=== PATIENT | male | born 1995 | race Two or more races ===

== ENCOUNTER 2016-11-11 03:09 | Emergency (ER) | payer SELFPAY ==
[~2016-11-11] VITALS: Ht 175.3 cm; Wt 70.3 kg
[~2016-11-11 03:09] MED LIST: NKM; PEPCID40 MG PO; ZOFRAN ODT4 MG ORAL; ZOFRAN8 MG ORAL
[2016-11-11] MEDS ORDERED: NKM (03:15)
[2016-11-11 03:16] VITALS: BP 147/93
[2016-11-11] MEDS ORDERED: ATIVAN0.5 MG ORAL (03:47)
--- NOTE | 2016-11-11 03:59 | Emergency Room Report ---
History of Present Illness General Chief Complaint: Chest Pain Source: Patient Present Illness HPI 21YOM Walk-in with 9 days of intermittent sharp chest pain substernal. No assoc nausea/vomiting, SOB, diaphoresis, fever/chills cough Denies ETOH, smoking, drug use No known medical problems Went to [facility] ER 8 days ago with similar. Had negative CXR, ECG and troponin per patient. Pain occurs when he is stressed or sees/thinks about something stressful Currently asymptomatic Had episode tonight when he was watching a movie and the character on the movie had a heart attack Pain better when he rubs his chest Allergies: Coded Allergies: No Known Allergies (Unverified , 04/16/13) Patient History Past Medical History: none Past Surgical History: none Pertinent Family History: none Social History: Denies: alcohol use, drug use, smoking Immunizations: UTD Reviewed Nursing Documentation: PMH: Agreed, PSxH: Agreed Nursing Documentation-PMH Past Medical History: No Stated History Review of Systems All Other Systems: negative except mentioned in HPI Physical Exam Vital Signs Date Time Temp Pulse Resp B/P Pulse Ox O2 Delivery O2 Flow Rate FiO2 11/11/16 03:11 97.5 87 16 147/93 99 Room Air Sp02 EP Interpretation: reviewed, normal General Appearance: normal inspection, well appearing, no apparent distress, alert Head: atraumatic Eyes: bilateral eye EOMI, bilateral eye PERRL ENT: normal ENT inspection, hearing grossly normal, normal voice Neck: normal inspection, full range of motion, supple, no bony tend Respiratory: normal inspection, lungs clear, normal breath sounds, no respiratory distress, no retraction, no wheezing Cardiovascular #1: regular rate, rhythm, no edema Gastrointestinal: normal inspection, normal bowel sounds, non tender, soft, no guarding, no hernia Genitourinary: no CVA tenderness Neurologic: normal inspection, alert, oriented x3, responsive, 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 Afebrile Already had negative workup at [facility] ECG here is NSR, no ischemia No ETOH or drug use history Pain occurs with stress ?panic attack, stress induced Unlikely PE, ACS given duration, well appearance, intermittent resolution of symptoms Rx Ativan short-course PMD followup Last Vital Signs Date Time Temp Pulse Resp B/P Pulse Ox O2 Delivery O2 Flow Rate FiO2 11/11/16 03:11 97.5 87 16 147/93 99 Room Air Status: improved Disposition: HOME, SELF-CARE Condition: Improved Scripts Lorazepam* (ATIVAN*) 0.5 Mg Tablet 0.5 MG ORAL DAILY for panic attack for 7 Days, #7 TAB Prov: MIMI GRAMAJO M.D. 11/11/16 Referrals: NOT CHOSEN IPA/,REFERRING (PCP) Patient Instructions: Panic Attacks, [id number] Additional Instructions: - Take ativan next time you have chest pain - Do not take before driving/working, operating machinery MIMI GRAMAJO M.D. Nov 11, 2016 03:59
[2016-11-11 04:02] VITALS: BP 147/93
== END 2016-11-11 04:02 | disposition home or self-care (01) ==
LOC: EMR 03:25
DX: R07.9 Chest pain, unspecified (principal); F43.0 Acute stress reaction
CPT/HCPCS: 99283

== ENCOUNTER 2017-08-19 23:29 | Emergency (ER) | payer OTHER, MEDICAID ==
[~2017-08-19] VITALS: Ht 175.3 cm; Wt 72.6 kg
[~2017-08-19 23:29] MED LIST changes: +ATIVAN0.5 MG ORAL
[2017-08-19 23:36] VITALS: BP 112/68
--- NOTE | 2017-08-19 23:55 | Emergency Room Report ---
History of Present Illness General Chief Complaint: Wound Recheck/Suture Removal Source: Patient Present Illness HPI Is a 21-year-old male who is right-hand dominant. He presents with chief complaint of suture removal. He had cut his fingers 10 days ago when punching a glass window. He sustained laceration was seen in [facility]. He has suture to the third fourth and fifth finger. No other complaint. Here for suture removal. Allergies: Coded Allergies: No Known Allergies (Unverified , 04/16/13) Patient History Past Medical History: see triage record, old chart reviewed Past Surgical History: none Pertinent Family History: none Social History: Denies: smoking Immunizations: other Reviewed Nursing Documentation: PMH: Agreed; PSxH: Agreed Nursing Documentation-PMH Past Medical History: No Stated History Review of Systems Eye: Denies: eye pain, blurred vision ENT: Denies: ear pain, nose congestion, throat swelling Respiratory: Denies: cough, shortness of breath Cardiovascular: Denies: chest pain, palpitations Gastrointestinal: Denies: abdominal pain, diarrhea, nausea, vomiting Musculoskeletal: Denies: back pain, joint pain Skin: Denies: rash Neurological: Denies: headache, numbness Endocrine: Denies: increased thirst, increased urine Hematologic/Lymphatic: Denies: easy bruising All Other Systems: negative except mentioned in HPI Physical Exam Vital Signs Date Time Temp Pulse Resp B/P (MAP) Pulse Ox O2 Delivery O2 Flow Rate FiO2 08/19/17 23:30 98.2 79 16 110/66 95 Room Air 98.2 vitals normal Sp02 EP Interpretation: reviewed, normal General Appearance: well appearing, no apparent distress, alert Head: normocephalic, atraumatic Eyes: bilateral eye PERRL, bilateral eye EOMI ENT: hearing grossly normal, normal pharynx Neck: full range of motion, supple, no meningismus Respiratory: chest non-tender, lungs clear, normal breath sounds Cardiovascular #1: regular rate, rhythm, no murmur Gastrointestinal: normal bowel sounds, non tender, no mass, no organomegaly, no bruit, non-distended Musculoskeletal: back normal, gait/station normal, normal range of motion, other - Right hand: Sutures intact to the third fourth and fifth proximal phalanx. No infection. Neurologic: alert, oriented x3, responsive Psychiatric: mood/affect normal Skin: warm/dry Procedures Additional Procedure Procedure Narrative Procedure: Suture removal Dictation: Scheduled suture Description: Using 11 blade scalpel I a cut the suture and remove it with forcep. Patient tolerated procedure without a problem. No complications Medical Decision Making Diagnostic Impression: Primary Impression: Encounter for removal of sutures ER Course Patient for suture removal. No evidence of infection. Slight wound dehiscence. No deep infection. We'll discharge home. Last Vital Signs Date Time Temp Pulse Resp B/P (MAP) Pulse Ox O2 Delivery O2 Flow Rate FiO2 08/19/17 23:36 98.0 78 16 112/68 96 Room Air 98.0 Status: improved Disposition: HOME, SELF-CARE Condition: Stable Additional Instructions: Keep wound clean. Follow with your Dr. in 7 days as needed. Return for any concern. FELICIA GARRISON M.D. August 19, 2017 23:55
[2017-08-19 23:57] VITALS: BP 112/68
== END 2017-08-20 | disposition home or self-care (01) ==
LOC: EMR 23:40
DX: S61.412D Laceration without foreign body of left hand, subsequent encounter (principal); X58.XXXD Exposure to other specified factors, subsequent encounter; Z48.02 Encounter for removal of sutures
CPT/HCPCS: 99281

== ENCOUNTER 2017-09-01 17:36 | Emergency (ER) | payer OTHER, MEDICAID ==
[~2017-09-01] VITALS: Ht 175.3 cm; Wt 72.6 kg
[2017-09-01] MEDS ORDERED: Glycopyrrolate 0.2mg/ml 1ml Vial IV ONE (18:00)
[2017-09-01 18:11] VITALS: BP 138/78
[2017-09-01 18:23] LABS: HEMATOCRIT 42.4 % (42.0-52.0); HEMOGLOBIN 14.4 G/DL (14.2-18.0); MEAN CORPUSCULAR VOLUME 88 FL (80-99); PLATELET COUNT 255 K/UL (150-450); RED BLOOD COUNT 4.84 M/UL (4.70-6.10); WHITE BLOOD COUNT 18.3 K/UL (4.8-10.8)
[2017-09-01 18:28] LABS: INR 1.1 (0.9-1.1)
[2017-09-01 18:31] LABS: ALANINE AMINOTRANSFERASE 45 U/L (12-78); ALBUMIN 4.4 G/DL (3.4-5.0); ALBUMIN/GLOBULIN RATIO 1.2 (1.0-2.7); ALKALINE PHOSPHATASE 69 U/L (46-116); ANION GAP 13 mmol/L (5-15); ASPARTATE AMINO TRANSFERASE 16 U/L (15-37); CARBON DIOXIDE 22 MMOL/L (21-32); CHLORIDE 101 MMOL/L (98-107); CREATININE 0.9 MG/DL (0.55-1.30); POTASSIUM 3.4 MMOL/L (3.5-5.1); SODIUM 135 MMOL/L (136-145)
[2017-09-01 18:45] LABS: BLOOD UREA NITROGEN 10 mg/dL (7-18)
[2017-09-01] MEDS ORDERED: Isovue-300 100ml vial INJ PRN (18:45)
[2017-09-01 18:46] LABS: CALCIUM 9.6 MG/DL (8.5-10.1)
--- NOTE | 2017-09-01 19:26 | Emergency Room Report ---
History of Present Illness General Chief Complaint: Nausea, Vomiting, and Diarrhea Source: Patient Present Illness HPI Patient is a 22-year-old male who presented after increased nausea and vomiting. Patient reports having increased epigastric pain associated with vomiting. Patient reports having severe crampy diarrhea. Stated this began after eating some chicken. He denies any fever. He ordered some increased rectal pain.The patient reports having similar symptoms previously. He denies drug use. The patient denies any bloody stools. Allergies: Coded Allergies: No Known Allergies (Unverified , 04/16/13) Patient History Past Medical History: see triage record Reviewed Nursing Documentation: PMH: Agreed; PSxH: Agreed Nursing Documentation-PMH Past Medical History: No Stated History Review of Systems All Other Systems: negative except mentioned in HPI Physical Exam Vital Signs Date Time Temp Pulse Resp B/P (MAP) Pulse Ox O2 Delivery O2 Flow Rate FiO2 09/01/17 17:38 98.1 83 18 127/67 97 Room Air 98.1 Sp02 EP Interpretation: reviewed, normal General Appearance: normal inspection, well appearing, no apparent distress, alert Head: atraumatic ENT: normal ENT inspection, hearing grossly normal, normal voice Neck: normal inspection, full range of motion, supple, no bony tend Respiratory: normal inspection, lungs clear, normal breath sounds, no respiratory distress, no retraction, no wheezing Cardiovascular #1: normal inspection, normal peripheral pulses, regular rate, rhythm, no edema Gastrointestinal: normal inspection, soft, no guarding, no hernia, tenderness - epigastric Genitourinary: no CVA tenderness Musculoskeletal: normal inspection, back normal, normal range of motion Neurologic: normal inspection, alert, responsive, speech normal Psychiatric: normal inspection, judgement/insight normal, mood/affect normal Skin: normal inspection, normal color, no rash Medical Decision Making ER Course Patient presented for abdominal pain. Differential diagnoses included ischemic bowel, appendicitis, perforated viscus, abdominal aortic aneurysm, inferior myocardial infarction, viral gastroenteritis Because of complexity of patient's case laboratory testing and imaging studies were ordered. The laboratory studies were notable for markedly elevated white blood count.The patient was given IV medications for acid reduction.CT abdomen pelvis read by radiology showed had no definite inflammatory changes with appendicolith the patient was noted to have elevated white blood count. Patient was given IV antibiotics. Dr. Novak from [facility] was contacted for transfer [facility]. Labs Test 09/01/17 18:00 White Blood Count 18.3 K/UL (4.8-10.8) Red Blood Count 4.84 M/UL (4.70-6.10) Hemoglobin 14.4 G/DL (14.2-18.0) Hematocrit 42.4 % (42.0-52.0) Mean Corpuscular Volume 88 FL (80-99) Mean Corpuscular Hemoglobin 29.7 PG (27.0-31.0) Mean Corpuscular Hemoglobin Concent 33.9 G/DL (32.0-36.0) Red Cell Distribution Width 11.0 % (11.6-14.8) Platelet Count 255 K/UL (150-450) Mean Platelet Volume 7.5 FL (6.5-10.1) Neutrophils (%) (Auto) % (45.0-75.0) Lymphocytes (%) (Auto) % (20.0-45.0) Monocytes (%) (Auto) % (1.0-10.0) Eosinophils (%) (Auto) % (0.0-3.0) Basophils (%) (Auto) % (0.0-2.0) Differential Total Cells Counted 100 Neutrophils % (Manual) 87 % (45-75) Lymphocytes % (Manual) 7 % (20-45) Monocytes % (Manual) 5 % (1-10) Eosinophils % (Manual) 0 % (0-3) Basophils % (Manual) 0 % (0-2) Band Neutrophils 1 % (0-8) Platelet Estimate Adequate Platelet Morphology Normal Red Blood Cell Morphology Normal Prothrombin Time 11.2 SEC (9.30-11.50) Prothromb Time International Ratio 1.1 (0.9-1.1) Activated Partial Thromboplast Time 26 SEC (23-33) Sodium Level 135 MMOL/L (136-145) Potassium Level 3.4 MMOL/L (3.5-5.1) Chloride Level 101 MMOL/L (98-107) Carbon Dioxide Level 22 MMOL/L (21-32) Anion Gap 13 mmol/L (5-15) Blood Urea Nitrogen 10 mg/dL (7-18) Creatinine 0.9 MG/DL (0.55-1.30) Estimat Glomerular Filtration Rate > 60 mL/min (>60) Glucose Level 147 MG/DL (74-106) Calcium Level 9.6 MG/DL (8.5-10.1) Total Bilirubin 1.0 MG/DL (0.2-1.0) Aspartate Amino Transf (AST/SGOT) 16 U/L (15-37) Alanine Aminotransferase (ALT/SGPT) 45 U/L (12-78) Alkaline Phosphatase 69 U/L (46-116) Total Protein 8.2 G/DL (6.4-8.2) Albumin 4.4 G/DL (3.4-5.0) Globulin 3.8 g/dL Albumin/Globulin Ratio 1.2 (1.0-2.7) Lipase 63 U/L (73-393) Last Vital Signs Date Time Temp Pulse Resp B/P (MAP) Pulse Ox O2 Delivery O2 Flow Rate FiO2 09/01/17 18:11 75 20 138/78 100 Room Air 09/01/17 17:38 98.1 98.1 Status: unchanged Disposition: XFER SHT-TRM HOSP Condition: Stable Referrals: [facility],REFERRING (PCP) Collins Hurtado MD September 01, 2017 19:26
[2017-09-01] MEDS ORDERED: NKM (19:38)
[2017-09-01 19:48] LABS: APPEARANCE,URINE CLEAR; BILIRUBIN, URINE NEGATIVE (NEGATIVE); COLOR,URINE PALE YELLOW; GLUCOSE, URINE (UA) NEGATIVE (NEGATIVE); KETONES,URINE 4+ (NEGATIVE); LEUKOCYTE ESTERASE ,URINE NEGATIVE (NEGATIVE); NITRITE,URINE NEGATIVE (NEGATIVE); PH,URINE 9 (4.5-8.0); PROTEIN,URINE 2+ (NEGATIVE); UROBILINOGEN,URINE NORMAL MG/DL (0.0-1.0)
[2017-09-01 20:00] VITALS: BP 128/78
[2017-09-01] MEDS ORDERED: Ampicillin/Sulbactam Sod 3 GM in NS 110 ML IVPB ONE (21:00)
[2017-09-01 22:15] VITALS: BP 137/64
[2017-09-01 23:05] VITALS: BP 137/64
--- NOTE | 2017-09-02 09:19 | Diagnostic Imaging Report ---
Indication: Abdominal pain Technique: Continuous helical transaxial imaging of the abdomen and pelvis was obtained from the lung bases to the pubic symphysis during intravenous contrast administration. Coronal 2-D reformats were also obtained. Study obtained in a Siemens sensation [address] Automatic Exposure Control was utilized. Total Dose length Product (DLP): 666.[address] Dose Index Volume (CTDIvol): 12 mGy Comparison: 08/09/2014 Findings: The lung bases are clear. The liver and spleen are unremarkable. The pancreas is unremarkable. Gallbladder is grossly unremarkable. No hydronephrosis or gallstones are identified. The appendix is normal with no evidence of wall thickening or inflammation. There may be a small appendicolith within the mid part of the appendix. There is breathing motion limiting evaluation. Urinary bladder is unremarkable. No free fluid or free air identified. IMPRESSION: No acute findings. Study limited by motion Possible appendicolith. No evidence of acute appendicitis The CT scanner at [facility] is accredited by the [employer] and the scans are performed using dose optimization techniques as appropriate to a performed exam including Automatic Exposure control.
--- NOTE | 2017-09-02 14:03 | Cardiology Report ---
APPROVED REPORT EKG Measurement Heart [id number] Normal sinus rhythm with sinus arrhythmia Normal ECG
== END 2017-09-01 22:35 | disposition short-term general hospital (02) ==
LOC: EMR 18:16
DX: R10.9 Unspecified abdominal pain (principal); R11.2 Nausea with vomiting, unspecified; R19.7 Diarrhea, unspecified
CPT/HCPCS: 36415; 74177; 80053; 80307; 81003; 83690; 85007; 85025; 85610; 85730; 93005; 99285; J0295; J2405; Q9967

== ENCOUNTER 2017-10-21 11:18 | Emergency (ER) | payer OTHER, MEDICAID ==
[~2017-10-21] VITALS: Ht 175.3 cm; Wt 74.8 kg
[2017-10-21] MEDS ORDERED: LORazepam Inj 2mg/ml 1ml IV ONE (11:45)
[2017-10-21] MEDS ORDERED: HYDROmorphone 1mg/ml Carpuject IVP ONE (11:45)
[2017-10-21] MEDS ORDERED: Isovue-300 100ml vial INJ PRN (11:45)
[2017-10-21 11:51] VITALS: BP 115/50
[2017-10-21 11:55] LABS: BASOPHILS % (AUTO) 0.7 % (0.0-2.0); EOSINOPHILS % (AUTO) 0.7 % (0.0-3.0); HEMATOCRIT 44.5 % (42.0-52.0); HEMOGLOBIN 15.1 G/DL (14.2-18.0); LYMPHOCYTES % (AUTO) 35.1 % (20.0-45.0); MEAN CORPUSCULAR VOLUME 89 FL (80-99); MONOCYTES % (AUTO) 6.4 % (1.0-10.0); NEUTROPHILS % (AUTO) 57.2 % (45.0-75.0); PLATELET COUNT 287 K/UL (150-450); RED CELL DISTRIBUTION WIDTH 10.8 % (11.6-14.8); WHITE BLOOD COUNT 15.8 K/UL (4.8-10.8)
[2017-10-21 11:59] LABS: BLOOD UREA NITROGEN 9 mg/dL (7-18); CALCIUM 9.8 MG/DL (8.5-10.1); CARBON DIOXIDE 25 MMOL/L (21-32); CHLORIDE 105 MMOL/L (98-107); CREATININE 1.1 MG/DL (0.55-1.30); POTASSIUM 3.7 MMOL/L (3.5-5.1)
[2017-10-21 12:03] LABS: ALANINE AMINOTRANSFERASE 28 U/L (12-78); ALBUMIN 4.5 G/DL (3.4-5.0); ALBUMIN/GLOBULIN RATIO 1.2 (1.0-2.7); ALKALINE PHOSPHATASE 79 U/L (46-116); ASPARTATE AMINO TRANSFERASE 15 U/L (15-37); BILIRUBIN,TOTAL 0.6 MG/DL (0.2-1.0); SODIUM 140 MMOL/L (136-145)
[2017-10-21] MEDS ORDERED: Morphine Sulfate 4mg/ml Inj IVP ONE (13:15)
--- NOTE | 2017-10-21 13:20 | Emergency Room Report ---
History of Present Illness General Chief Complaint: Abdominal Pain Source: Patient Present Illness HPI Patient present with complaints of lower abdominal pain and vomiting He reports of the pain is similar to what he had previously Patient was seen here and this may Transferred to contracted facility and reportedly had appendectomy Patient states that he is not sure why they removed his appendix The pain was mainly on the left side Here the patient has persistent vomiting at bedside pain is 10 out of 10 localized to bilateral lower abdomen Denies any dysuria frequency denies any fevers or chills Denies any flank pain Allergies: Coded Allergies: No Known Allergies (Unverified , 04/16/13) Patient History Past Medical History: see triage record Pertinent Family History: none Reviewed Nursing Documentation: PMH: Agreed; PSxH: Agreed Nursing Documentation-PMH Past Medical History: No Stated History Review of Systems All Other Systems: negative except mentioned in HPI Physical Exam Vital Signs Date Time Temp Pulse Resp B/P (MAP) Pulse Ox O2 Delivery O2 Flow Rate FiO2 10/21/17 11:27 79 22 120/71 95 Room Air 10/21/17 11:51 97.4 97.4 Sp02 EP Interpretation: reviewed, normal General Appearance: mild distress - Actively nauseated vomiting Head: normocephalic, atraumatic Eyes: bilateral eye PERRL, bilateral eye EOMI ENT: normal pharynx, no angioedema Neck: full range of motion, supple Respiratory: lungs clear, normal breath sounds Cardiovascular #1: regular rate, rhythm Gastrointestinal: normal bowel sounds, soft - However patient subjectively has discomfort diffusely Musculoskeletal: normal inspection Neurologic: alert, oriented x3, responsive Skin: normal color, no rash Lymphatic: no adenopathy Medical Decision Making Diagnostic Impression: Primary Impression: Nausea, vomiting, and diarrhea Additional Impression: abdominal pain resolved ER Course With the history exam and presentation, multiple differentials considered, including but not limited to appendicitis, gastritis, cholecystitis, diverticulitis Patient has had recent appendectomy Therefore consideration for abscess or other infectious pathology is also made Patient's blood work reveals mildly elevated white blood cell count This however is lower significantly than the previous CBCs that were done patient has had white blood cell at 22,000 and 18,000 CT imaging was obtained given the patient's discomfort There was some question of diarrhea on CAT scan After further discussion patient does report that he has had increased diarrhea over the past one to 2 days Patient has responded significantly well to the acute intervention resting comfortably and at this time requires close outpatient follow-up Please note that the patient's leukocytosis has improved significantly from multiple previous presentations Labs Test 10/21/17 11:35 White Blood Count 15.8 K/UL (4.8-10.8) Red Blood Count 5.00 M/UL (4.70-6.10) Hemoglobin 15.1 G/DL (14.2-18.0) Hematocrit 44.5 % (42.0-52.0) Mean Corpuscular Volume 89 FL (80-99) Mean Corpuscular Hemoglobin 30.3 PG (27.0-31.0) Mean Corpuscular Hemoglobin Concent 34.0 G/DL (32.0-36.0) Red Cell Distribution Width 10.8 % (11.6-14.8) Platelet Count 287 K/UL (150-450) Mean Platelet Volume 8.2 FL (6.5-10.1) Neutrophils (%) (Auto) 57.2 % (45.0-75.0) Lymphocytes (%) (Auto) 35.1 % (20.0-45.0) Monocytes (%) (Auto) 6.4 % (1.0-10.0) Eosinophils (%) (Auto) 0.7 % (0.0-3.0) Basophils (%) (Auto) 0.7 % (0.0-2.0) Sodium Level 140 MMOL/L (136-145) Potassium Level 3.7 MMOL/L (3.5-5.1) Chloride Level 105 MMOL/L (98-107) Carbon Dioxide Level 25 MMOL/L (21-32) Blood Urea Nitrogen 9 mg/dL (7-18) Creatinine 1.1 MG/DL (0.55-1.30) Estimat Glomerular Filtration Rate > 60 mL/min (>60) Glucose Level 132 MG/DL (74-106) Calcium Level 9.8 MG/DL (8.5-10.1) Total Bilirubin 0.6 MG/DL (0.2-1.0) Aspartate Amino Transf (AST/SGOT) 15 U/L (15-37) Alanine Aminotransferase (ALT/SGPT) 28 U/L (12-78) Alkaline Phosphatase 79 U/L (46-116) Total Protein 8.3 G/DL (6.4-8.2) Albumin 4.5 G/DL (3.4-5.0) Globulin 3.8 g/dL Albumin/Globulin Ratio 1.2 (1.0-2.7) Lipase 101 U/L (73-393) CT/MRI/US Diagnostic Results CT/MRI/US Diagnostic Results : Impression CT abdomen pelvisIMPRESSION: Small amount of liquefied stool in the right hemicolon may be on the basis of gastroenteritis and diarrhea. Correlate clinically. Apparent appendectomy. No evidence of intra-abdominal abscess, acute inflammation or other acute process. Last Vital Signs Date Time Temp Pulse Resp B/P (MAP) Pulse Ox O2 Delivery O2 Flow Rate FiO2 10/21/17 11:51 97.4 74 16 115/50 100 Room Air 97.4 Status: improved Disposition: HOME, SELF-CARE Condition: Improved Scripts Acetaminophen With Codeine (T#3) (TYLENOL #3 TAB*) Y Tab 1 TAB ORAL Q8H PRN for For Pain, #15 TAB Prov: Bianca Gong DO 10/21/17 Metoclopramide Hcl* (REGLAN*) 5 Mg Tablet 5 MG ORAL EVERY 8 HOURS, #12 TAB Prov: Bianca Gong DO 10/21/17 Referrals: [facility],REFERRING (PCP) Additional Instructions: Patient is provided with the discharge instructions notified to follow up with primary doctor in the next 2-3 days otherwise return to the er with any worsening symptoms. Please note that this report is being documented using DRAGON technology. This can lead to erroneous entry secondary to incorrect interpretation by the dictating instrument. Bianca Gogn DO Oct 21, 2017 13:20
[2017-10-21 13:28] LABS: APPEARANCE,URINE CLEAR; BILIRUBIN, URINE NEGATIVE (NEGATIVE); COLOR,URINE PALE YELLOW; GLUCOSE, URINE (UA) NEGATIVE (NEGATIVE); KETONES,URINE 2+ (NEGATIVE); LEUKOCYTE ESTERASE ,URINE NEGATIVE (NEGATIVE); NITRITE,URINE NEGATIVE (NEGATIVE); PH,URINE 8 (4.5-8.0); PROTEIN,URINE NEGATIVE (NEGATIVE); UROBILINOGEN,URINE NORMAL MG/DL (0.0-1.0)
--- NOTE | 2017-10-21 13:48 | Diagnostic Imaging Report ---
Indication: Abdominal pain Technique: Continuous helical transaxial imaging of the abdomen and pelvis was obtained from the lung bases to the pubic symphysis during intravenous contrast administration. Coronal 2-D reformats were also obtained. Study obtained in a Siemens sensation [address] Automatic Exposure Control was utilized. Total Dose length Product (DLP): 797.[address] Dose Index Volume (CTDIvol): 13.45 mGy Comparison: None Findings: The lung bases are clear. There is no free fluid, free air or evidence of bowel obstruction. There is a small amount of liquefied stool present in the right hemicolon correlate for diarrhea. There is a curvilinear hyperdense structure within what appears to be the area of the appendix. Patient may have had ligation or appendectomy. Correlate with surgical history. There is no abscess or other inflammatory findings. Urinary bladder is unremarkable. There is no hydronephrosis. The liver, spleen, pancreas, gallbladder appear normal. IMPRESSION: Small amount of liquefied stool in the right hemicolon may be on the basis of gastroenteritis and diarrhea. Correlate clinically. Apparent appendectomy. No evidence of intra-abdominal abscess, acute inflammation or other acute process. The CT scanner at [facility] is accredited by the [employer] and the scans are performed using dose optimization techniques as appropriate to a performed exam including Automatic Exposure control.
[2017-10-21] MEDS ORDERED: ACETAMINOPHEN-1 EAC1 ORAL (13:50)
[2017-10-21] MEDS ORDERED: REGLAN5 MG ORAL (13:50)
[2017-10-21] MEDS ORDERED: Capsaicin 0.075% Cream TOPIC ONE (15:00)
[2017-10-21 15:03] VITALS: BP 139/90
[2017-10-22] MEDS ORDERED: OMEPRAZOLE40 M1 ORAL (11:09)
== END 2017-10-21 15:03 | disposition home or self-care (01) ==
LOC: EMR 11:45
DX: R11.2 Nausea with vomiting, unspecified (principal); R19.7 Diarrhea, unspecified; R10.30 Lower abdominal pain, unspecified
CPT/HCPCS: 36415; 74177; 80053; 80307; 81003; 83690; 85025; 96361; 96374; 96375; 96376; 99284; J1170; J2270; J2405; Q9967

== ENCOUNTER 2017-10-22 09:37 | Emergency (ER) | payer OTHER, MEDICAID ==
[~2017-10-22] VITALS: Ht 175.3 cm; Wt 74.8 kg
[~2017-10-22 09:37] MED LIST changes: +ACETAMINOPHEN-1 EAC1 ORAL; +REGLAN5 MG ORAL
--- NOTE | 2017-10-22 11:08 | Emergency Room Report ---
History of Present Illness General Chief Complaint: Abdominal Pain Source: Patient Present Illness HPI This patient was here yesterday and returned for same. He has intermittent chronic abd pain. He has had negative EGD in the past and also had appendectomy for pain. Yesterday here he had labs and CT abdomen unremarkable. Rx. Zofran. Since then no new issues. No trauma, no fever, no shortness of breath, no chest pain, no diarrhea, no syncope, LOC, dizziness, lightheadedness, headache. Allergies: Coded Allergies: No Known Allergies (Unverified , 04/16/13) Nursing Documentation-[facility] Past Medical History: No Stated History Review of Systems Constitutional: Reports: see HPI; Denies: fever Eye: Denies: acuity changes Respiratory: Denies: cough, shortness of breath Cardiovascular: Denies: chest pain Gastrointestinal: Reports: see HPI, abdominal pain, nausea, vomiting Skin: Denies: rash Neurological: Denies: headache Physical Exam Vital Signs Date Time Temp Pulse Resp B/P (MAP) Pulse Ox O2 Delivery O2 Flow Rate FiO2 10/22/17 09:44 97.5 76 18 128/87 100 Room Air 97.5 General Appearance: well appearing, no apparent distress, other - ambulatory in ED Head: normocephalic, atraumatic ENT: hearing grossly normal, normal voice Neck: full range of motion, supple Respiratory: no respiratory distress, speaking full sentences Musculoskeletal: no calf tenderness Neurologic: alert, normal gait Psychiatric: mood/affect normal Skin: no rash Medical Decision Making Diagnostic Impression: Primary Impression: Intractable abdominal pain ER Course I suspect gastritis or drug dependence. Last Vital Signs Date Time Temp Pulse Resp B/P (MAP) Pulse Ox O2 Delivery O2 Flow Rate FiO2 10/22/17 09:44 97.5 76 18 128/87 100 Room Air 97.5 Status: unchanged Disposition: HOME, SELF-CARE Condition: Stable Referrals: [facility],REFERRING (PCP) Patient Instructions: Abdominal Pain, Adult Cuco Lyons M.D. Oct 22, 2017 11:08
[2017-10-22] MEDS ORDERED: OMEPRAZOLE40 M1 ORAL (11:09)
[2017-10-22 11:56] VITALS: BP 110/65
[2017-10-22 11:57] VITALS: BP 110/65
== END 2017-10-22 11:54 | disposition home or self-care (01) ==
LOC: EMR 10:40
DX: R10.9 Unspecified abdominal pain (principal); G89.29 Other chronic pain
CPT/HCPCS: 99282

== ENCOUNTER 2018-01-23 20:04 | Emergency (ER) | payer BC, MEDICAID, OTHER ==
[~2018-01-23] VITALS: Ht 172.7 cm; Wt 72.6 kg
[~2018-01-23 20:04] MED LIST changes: +OMEPRAZOLE40 M1 ORAL
[2018-01-23] MEDS ORDERED: Sodium Chloride 500ML 500 ML IV ONE ×2 (20:27→21:45)
[2018-01-23 20:30] VITALS: BP 129/78
[2018-01-23] MEDS ORDERED: Mylanta II UD 30ml ORAL ONE (20:30)
[2018-01-23] MEDS ORDERED: Lidocaine 2% Visc 15ml soln ORAL ONE (20:30)
[2018-01-23] MEDS ORDERED: Dicyclomine HCl 10mg/5ml oral soln ORAL ONE (20:30)
[2018-01-23 21:17] LABS: HEMATOCRIT 50.7 % (42.0-52.0); HEMOGLOBIN 17.2 G/DL (14.2-18.0); MEAN CORPUSCULAR VOLUME 91 FL (80-99); PLATELET COUNT 277 K/UL (150-450); RED BLOOD COUNT 5.57 M/UL (4.70-6.10); RED CELL DISTRIBUTION WIDTH 11.3 % (11.6-14.8); WHITE BLOOD COUNT 21.8 K/UL (4.8-10.8)
[2018-01-23 21:29] LABS: ANION GAP 16 mmol/L (5-15); BLOOD UREA NITROGEN 10 mg/dL (7-18); CALCIUM 10.4 MG/DL (8.5-10.1); CARBON DIOXIDE 24 MMOL/L (21-32); CHLORIDE 99 MMOL/L (98-107); SODIUM 138 MMOL/L (136-145)
[2018-01-23 21:35] LABS: ALANINE AMINOTRANSFERASE 35 U/L (12-78); ALBUMIN 4.7 G/DL (3.4-5.0); ALBUMIN/GLOBULIN RATIO 1.1 (1.0-2.7); ALKALINE PHOSPHATASE 87 U/L (46-116); ASPARTATE AMINO TRANSFERASE 14 U/L (15-37); BILIRUBIN,TOTAL 0.7 MG/DL (0.2-1.0)
[2018-01-23] MEDS ORDERED: Isovue-300 100ml vial INJ PRN (21:45)
--- NOTE | 2018-01-23 23:02 | Diagnostic Imaging Report ---
EXAM: CT Abdomen and Pelvis With Intravenous Contrast CLINICAL HISTORY: PAIN TECHNIQUE: Axial computed tomography images of the abdomen and pelvis with intravenous contrast. One or more of the following dose reduction techniques were used: automated exposure control, adjustment of the mA and/or kV according to patient size, use of iterative reconstruction technique. DLP 542.98 CTDI 10.01 COMPARISON: CT 10/21/17 FINDINGS: Lung bases: Unremarkable. No mass. No consolidation. ABDOMEN: Liver: See below. Gallbladder and bile ducts: See below. Pancreas: See below. Spleen: See below. Adrenals: Unremarkable. No mass. Kidneys and ureters: See below. Stomach and bowel: Fluid within nondistended loops of small bowel and within prominent stomach without bowel wall thickening or surrounding inflammation can be normal or can be seen with gastroenteritis in the right clinical setting. PELVIS: Appendix: Prior appendectomy. No colitis, diverticulitis, inflammatory changes of bowel or bowel obstruction. Bladder: Unremarkable. No mass. Reproductive: Unremarkable as visualized. ABDOMEN and PELVIS: Intraperitoneal space: No free fluid. No free air. Bones/joints: No acute fracture. No dislocation. Soft tissues: Unremarkable. Vasculature: Aorta, liver, spleen, pancreas, gallbladder, and kidneys are unremarkable. No abdominal aortic aneurysm. Lymph nodes: Unremarkable. No enlarged lymph nodes. IMPRESSION: Fluid within nondistended loops of small bowel and within prominent stomach without bowel wall thickening or surrounding inflammation can be normal or can be seen with gastroenteritis in the right clinical setting. No other evidence for acute or inflammatory disease or bowel obstruction.
[2018-01-23 23:09] LABS: APPEARANCE,URINE CLEAR; BILIRUBIN, URINE NEGATIVE (NEGATIVE); COLOR,URINE PALE YELLOW; GLUCOSE, URINE (UA) NEGATIVE (NEGATIVE); KETONES,URINE NEGATIVE (NEGATIVE); LEUKOCYTE ESTERASE ,URINE NEGATIVE (NEGATIVE); NITRITE,URINE NEGATIVE (NEGATIVE); PH,URINE 8 (4.5-8.0); PROTEIN,URINE NEGATIVE (NEGATIVE); UROBILINOGEN,URINE NORMAL MG/DL (0.0-1.0)
[2018-01-23] MEDS ORDERED: ZOFRAN4 MG ORAL (23:13)
[2018-01-23 23:32] VITALS: BP 124/64
[2018-01-23 23:33] VITALS: BP 124/64
--- NOTE | 2018-01-23 23:37 | Emergency Room Report ---
History of Present Illness General Chief Complaint: Abdominal Pain Source: Patient Present Illness HPI Patient's 22-year-old male who presented after increased epigastric pain associated with nausea and vomiting. Patient reports having prior history of elevated white blood count. He reports having had previous appendectomy. Patient reports having multiple episodes of nonbilious nonbloody vomit. He denies recent alcohol or marijuana use.The pain was described as crampy in nature. He describes as severe. Allergies: Coded Allergies: No Known Allergies (Unverified , 04/16/13) Patient History Past Medical History: see triage record Reviewed Nursing Documentation: PMH: Agreed; PSxH: Agreed Nursing Documentation-PMH Past Medical History: No History, Except For Review of Systems All Other Systems: negative except mentioned in HPI Physical Exam Vital Signs Date Time Temp Pulse Resp B/P (MAP) Pulse Ox O2 Delivery O2 Flow Rate FiO2 01/23/18 20:08 97.8 78 16 129/78 99 Room Air 97.9 Sp02 EP Interpretation: reviewed, normal General Appearance: normal inspection, well appearing, no apparent distress, alert, GCS 15 Head: atraumatic ENT: normal ENT inspection, hearing grossly normal, normal voice Neck: normal inspection, full range of motion, supple, no bony tend Respiratory: normal inspection, lungs clear, normal breath sounds, no respiratory distress, no retraction, no wheezing Cardiovascular #1: regular rate, rhythm, no edema Gastrointestinal: normal inspection, normal bowel sounds, non tender, soft, no guarding, no hernia Genitourinary: no CVA tenderness Musculoskeletal: normal inspection, back normal, normal range of motion Neurologic: normal inspection, alert, oriented x3, responsive, 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 Differential diagnoses included ischemic bowel, appendicitis, perforated viscus, abdominal aortic aneurysm, inferior myocardial infarction, viral gastroenteritis Because of complexity of patient's case laboratory testing and imaging studies were ordered.The laboratory testing was normal prior elevated white blood count. CT the abdomen pelvis read by radiology showed some fluid-filled bowel loops consistent with enteritis. The patient was given antiemetics and IV fluids with complete improvement in symptoms. Patient stated he felt better want to go home.The patient is advised to follow up with primary care doctor in 1-2 days. Patient is advised to return if any worsening condition or if any changes in status that are concerning. This report is dictated with [employer] v[employer] informatics software which may occasionally lead to discrepancies related to use of this software. Last Vital Signs Date Time Temp Pulse Resp B/P (MAP) Pulse Ox O2 Delivery O2 Flow Rate FiO2 01/23/18 20:08 97.8 78 16 129/78 99 Room Air 97.9 Status: improved Disposition: HOME, SELF-CARE Condition: Stable Scripts Ondansetron (Zofran) 4 Mg Tablet 4 MG ORAL Q6H PRN for Nausea & Vomiting, #30 TAB 0 Refills Prov: Collins Hurtado MD 01/23/18 Referrals: [facility],REFERRING (PCP) Patient Instructions: Abdominal Pain, Adult Collins Hurtado MD Jan 23, 2018 23:37
== END 2018-01-23 23:32 | disposition home or self-care (01) ==
LOC: EMR 20:30
DX: D72.829 Elevated white blood cell count, unspecified (principal); E86.0 Dehydration; R10.13 Epigastric pain
CPT/HCPCS: 36415; 74177; 80053; 81003; 83690; 84484; 85007; 85025; 96374; 96375; 99284; J2405; J7040; Q9967; S0028

== ENCOUNTER 2018-02-01 21:38 | Emergency (ER) | payer BC ==
[~2018-02-01] VITALS: Ht 175.3 cm; Wt 72.6 kg
[~2018-02-01 21:38] MED LIST changes: +ZOFRAN4 MG ORAL
[2018-02-01 21:51] VITALS: BP 138/69
[2018-02-01] MEDS ORDERED: IBUPROFEN600 MG ORAL (22:34)
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
[2018-02-01 22:48] VITALS: BP 127/64
[2018-02-01 22:49] VITALS: BP 138/69
== END 2018-02-01 22:49 | disposition home or self-care (01) ==
LOC: EMR 22:05
DX: S29.011A Strain of muscle and tendon of front wall of thorax, initial encounter (principal); Y04.0XXA Assault by unarmed brawl or fight, initial encounter; Y92.9 Unspecified place or not applicable
CPT/HCPCS: 99283

== ENCOUNTER 2018-03-02 09:50 | Emergency (ER) | payer BC ==
[~2018-03-02] VITALS: Ht 170.2 cm; Wt 70.3 kg
[~2018-03-02 09:50] MED LIST changes: +CEPHALEXIN500 MG ORAL; +IBUPROFEN600 MG ORAL; +ZOFRAN4 M3 ORAL
[2018-03-02 10:21] VITALS: BP 136/67
[2018-03-02 10:28] LABS: BASOPHILS % (AUTO) 1.2 % (0.0-2.0); EOSINOPHILS % (AUTO) 0.3 % (0.0-3.0); HEMATOCRIT 44.4 % (42.0-52.0); HEMOGLOBIN 14.9 G/DL (14.2-18.0); LYMPHOCYTES % (AUTO) 29.7 % (20.0-45.0); MEAN CORPUSCULAR VOLUME 88 FL (80-99); MONOCYTES % (AUTO) 5.7 % (1.0-10.0); PLATELET COUNT 302 K/UL (150-450); RED BLOOD COUNT 5.07 M/UL (4.70-6.10); RED CELL DISTRIBUTION WIDTH 11.2 % (11.6-14.8); WHITE BLOOD COUNT 17.3 K/UL (4.8-10.8)
[2018-03-02 10:47] LABS: ANION GAP 13 mmol/L (5-15); BLOOD UREA NITROGEN 9 mg/dL (7-18); CALCIUM 8.7 MG/DL (8.5-10.1); CARBON DIOXIDE 23 MMOL/L (21-32); CHLORIDE 105 MMOL/L (98-107); CREATININE 0.9 MG/DL (0.55-1.30); SODIUM 141 MMOL/L (136-145)
[2018-03-02 10:50] LABS: ALANINE AMINOTRANSFERASE 29 U/L (12-78); ALBUMIN 3.5 G/DL (3.4-5.0); ALBUMIN/GLOBULIN RATIO 0.8 (1.0-2.7); ALKALINE PHOSPHATASE 72 U/L (46-116); ASPARTATE AMINO TRANSFERASE 24 U/L (15-37); BILIRUBIN,TOTAL 0.3 MG/DL (0.2-1.0)
[2018-03-02] MEDS ORDERED: Capsaicin 0.075% Cream TOPIC ONE (11:00)
[2018-03-02 12:37] LABS: APPEARANCE,URINE CLEAR; BILIRUBIN, URINE NEGATIVE (NEGATIVE); COLOR,URINE PALE YELLOW; GLUCOSE, URINE (UA) NEGATIVE (NEGATIVE); KETONES,URINE NEGATIVE (NEGATIVE); LEUKOCYTE ESTERASE ,URINE 1+ (NEGATIVE); NITRITE,URINE NEGATIVE (NEGATIVE); PH,URINE 8 (4.5-8.0); PROTEIN,URINE NEGATIVE (NEGATIVE); UROBILINOGEN,URINE NORMAL MG/DL (0.0-1.0)
[2018-03-02 13:03] VITALS: BP 127/66
--- NOTE | 2018-03-02 14:44 | Emergency Room Report ---
History of Present Illness General Chief Complaint: Abdominal Pain Source: Patient Present Illness HPI This patient complains of recurrent vomiting and diffuse abdominal pain. He has been seen here at [facility] several times for the same symptoms. Most recently he was seen yesterday. He states that he continues to have diffuse abdominal pain and intractable vomiting. He underwent CT of the abdomen and pelvis yesterday. He has a history of appendectomy. He also has a history of leukocytosis. He denies any new symptoms. He has no other complaints. Allergies: Coded Allergies: No Known Allergies (Unverified , 04/16/13) Patient History Past Medical History: see triage record, other - Intractable vomiting Past Surgical History: appy Social History: Denies: smoking, alcohol use, drug use Reviewed Nursing Documentation: PMH: Agreed; PSxH: Agreed Review of Systems All Other Systems: negative except mentioned in HPI Physical Exam Vital Signs Date Time Temp Pulse Resp B/P (MAP) Pulse Ox O2 Delivery O2 Flow Rate FiO2 03/02/18 09:51 97.0 77 20 136/67 96 Room Air 03/02/18 10:21 100 Sp02 EP Interpretation: reviewed, normal General Appearance: no apparent distress, alert, GCS 15, non-toxic Head: normocephalic, atraumatic Eyes: bilateral eye normal inspection, bilateral eye PERRL ENT: hearing grossly normal, normal pharynx, no angioedema, normal voice Neck: full range of motion, supple/symm/no masses Respiratory: chest non-tender, lungs clear, normal breath sounds, no respiratory distress, no retraction, no accessory muscle use, speaking full sentences Cardiovascular #1: regular rate, rhythm, no edema Gastrointestinal: normal bowel sounds, soft, non-distended, no guarding, no rebound, tenderness - Diffusely TTP in the upper abdomen Rectal: deferred Musculoskeletal: back normal, gait/station normal, normal range of motion, non- tender Neurologic: alert, oriented x3, responsive, motor strength/tone normal, sensory intact, speech normal Psychiatric: judgement/insight normal, memory normal, mood/affect normal, no suicidal/homicidal ideation Skin: normal color, no rash, warm/dry, well hydrated Medical Decision Making Diagnostic Impression: Primary Impression: Cannabis hyperemesis syndrome concurrent with and due to cannabis abuse ER Course I suspect this patient has a history of cannabis hyperemesis syndrome. He is always positive for THC and presents for the same symptoms to include recurrent vomiting and abdominal pain. Initially he was treated with Zofran and IV fluids. This was ineffective. Station cream was placed on his abdomen and he had complete relief of his symptoms. Patient was educated that the only relief for this syndrome is cessation of cannabis. The patient indicated understanding. At this time, I do not feel that any further imaging needs to be repeated given a normal CT of the abdomen and pelvis yesterday. Patient's evaluation is benign. The patient has a known history of leukocytosis and his leukocytosis is lower today from yesterday. I suspect this is from the cyclic vomiting. Patient is given return precautions and follow-up instructions. Laboratory Tests Test 03/02/18 10:00 03/02/18 12:25 White Blood Count 17.3 K/UL (4.8-10.8) H Red Blood Count 5.07 M/UL (4.70-6.10) Hemoglobin 14.9 G/DL (14.2-18.0) Hematocrit 44.4 % (42.0-52.0) Mean Corpuscular Volume 88 FL (80-99) Mean Corpuscular Hemoglobin 29.4 PG (27.0-31.0) Mean Corpuscular Hemoglobin Concent 33.6 G/DL (32.0-36.0) Red Cell Distribution Width 11.2 % (11.6-14.8) L Platelet Count 302 K/UL (150-450) Mean Platelet Volume 7.3 FL (6.5-10.1) Neutrophils (%) (Auto) 63.0 % (45.0-75.0) Lymphocytes (%) (Auto) 29.7 % (20.0-45.0) Monocytes (%) (Auto) 5.7 % (1.0-10.0) Eosinophils (%) (Auto) 0.3 % (0.0-3.0) Basophils (%) (Auto) 1.2 % (0.0-2.0) Sodium Level 141 MMOL/L (136-145) Potassium Level 4.0 MMOL/L (3.5-5.1) Chloride Level 105 MMOL/L (98-107) Carbon Dioxide Level 23 MMOL/L (21-32) Anion Gap 13 mmol/L (5-15) Blood Urea Nitrogen 9 mg/dL (7-18) Creatinine 0.9 MG/DL (0.55-1.30) Estimate Glomerular Filtration Rate > 60 mL/min (>60) Glucose Level 136 MG/DL (74-106) H Calcium Level 8.7 MG/DL (8.5-10.1) Total Bilirubin 0.3 MG/DL (0.2-1.0) Aspartate Amino Transferase (AST) 24 U/L (15-37) Alanine Aminotransferase (ALT) 29 U/L (12-78) Alkaline Phosphatase 72 U/L (46-116) Total Protein 7.7 G/DL (6.4-8.2) Albumin 3.5 G/DL (3.4-5.0) Globulin 4.2 g/dL Albumin/Globulin Ratio 0.8 (1.0-2.7) L Lipase 143 U/L (73-393) Urine Color Pale yellow Urine Appearance Clear Urine pH 8 (4.5-8.0) Urine Specific [place] 1.010 (1.005-1.035) Urine Protein Negative (NEGATIVE) Urine Glucose (UA) Negative (NEGATIVE) Urine Ketones Negative (NEGATIVE) Urine Blood Negative (NEGATIVE) Urine Nitrite Negative (NEGATIVE) Urine Bilirubin Negative (NEGATIVE) Urine Urobilinogen Normal MG/DL (0.0-1.0) Urine Leukocyte Esterase 1+ (NEGATIVE) H Urine RBC 0 /HPF (0 - 0) Urine WBC 2-4 /HPF (0 - 0) Urine Squamous Epithelial Cells Occasional /LPF Urine Bacteria Occasional /HPF (NONE) Urine Opiates Screen Negative (NEGATIVE) Urine Barbiturates Screen Negative (NEGATIVE) Phencyclidine (PCP) Screen Negative (NEGATIVE) Urine Amphetamines Screen Negative (NEGATIVE) Urine Benzodiazepines Screen Negative (NEGATIVE) Urine Cocaine Screen Negative (NEGATIVE) Urine Marijuana (THC) Screen Positive (NEGATIVE) H Last Vital Signs Date Time Temp Pulse Resp B/P (MAP) Pulse Ox O2 Delivery O2 Flow Rate FiO2 03/02/18 13:03 97.8 54 16 127/66 99 Room Air 03/02/18 10:21 100 Status: improved Disposition: HOME, SELF-CARE Condition: Improved Referrals: [facility],REFERRING (PCP) Giovanna García DO Mar 02, 2018 14:44
[2018-03-02 14:59] VITALS: BP 120/65
== END 2018-03-02 15:00 | disposition home or self-care (01) ==
LOC: EMR 10:00
DX: R11.10 Vomiting, unspecified (principal); F12.10 Cannabis abuse, uncomplicated
CPT/HCPCS: 36415; 80053; 80307; 81003; 83690; 85025; 96361; 96374; 96375; 99284; J2405; S0028

== ENCOUNTER 2018-07-29 14:04 | Emergency (ER) | payer BC ==
[~2018-07-29] VITALS: Ht 175.3 cm; Wt 77.1 kg
[2018-07-29] MEDS ORDERED: NKM (14:15)
--- NOTE | 2018-07-29 14:18 | NUR ---
ED Nurse Note: Patient walked into ED c/o LUQ abdominal pain since this morning after eating pizza, patient reports nausea and vomiting. patient is not actively vomiting in the ED at this time. patient is alert awake x4 ambulatory, cariac monitor applied. breathing even and unlabored.
[2018-07-29 14:31] VITALS: BP 124/81
[2018-07-29] MEDS ORDERED: Morphine Sulfate 4mg/ml Inj (IV USE ONLY) IVP ONE ×2 (14:45→17:15)
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
[2018-07-29 15:23] LABS: HEMATOCRIT 41.3 % (42.0-52.0); MEAN CORPUSCULAR VOLUME 88 FL (80-99); PLATELET COUNT 260 K/UL (150-450); RED CELL DISTRIBUTION WIDTH 11.1 % (11.6-14.8); WHITE BLOOD COUNT 19.7 K/UL (4.8-10.8)
[2018-07-29 15:26] LABS: ANION GAP 13 mmol/L (5-15); BLOOD UREA NITROGEN 8 mg/dL (7-18); CALCIUM 9.5 MG/DL (8.5-10.1); CARBON DIOXIDE 24 MMOL/L (21-32); CHLORIDE 100 MMOL/L (98-107); POTASSIUM 3.8 MMOL/L (3.5-5.1); SODIUM 136 MMOL/L (136-145)
[2018-07-29 15:33] LABS: ALANINE AMINOTRANSFERASE 34 U/L (12-78); ALBUMIN 4.2 G/DL (3.4-5.0); ALBUMIN/GLOBULIN RATIO 1.2 (1.0-2.7); ALKALINE PHOSPHATASE 66 U/L (46-116); ASPARTATE AMINO TRANSFERASE 27 U/L (15-37); BILIRUBIN,TOTAL 0.4 MG/DL (0.2-1.0)
[2018-07-29] MEDS ORDERED: Isovue-300 100ml vial INJ PRN (17:15)
--- NOTE | 2018-07-29 17:18 | NUR ---
ED Nurse Note: called for CT scan, spoke with
--- NOTE | 2018-07-29 17:43 | NUR ---
ED Nurse Note: patient went to CT
--- NOTE | 2018-07-29 17:53 | NUR ---
ED Nurse Note: patient came back from CT
[2018-07-29 18:54] VITALS: BP 118/71
[2018-07-29] MEDS ORDERED: HYDROmorphone 1mg/ml Carpuject IVP ONE (20:00)
[2018-07-29] MEDS ORDERED: ZOFRAN4 M1 ORAL (21:17)
[2018-07-29] MEDS ORDERED: NORCO 5-325 TA1 EACH ORAL (21:17)
[2018-07-29 21:20] VITALS: BP 130/80
--- NOTE | 2018-07-29 21:20 | NUR ---
ER DISCHARGE NOTE: Patient is cleared to be discharged per ERMD, pt is aox4, on room air, with stable vital signs. pt was given dc and prescription instructions, pt was able to verbalize understanding, pt id band and iv site removed without complications. pt is able to ambulate with steady gait with girlfriend. pt took all belongings.
[2018-07-29 21:28] VITALS: BP 130/80
--- NOTE | 2018-07-30 10:24 | Diagnostic Imaging Report ---
Clinical Indication: Abdominal pain, nausea, vomiting since this morning Technique: No oral contrast utilized, per emergency room physician request IV administration nonionic contrast. Venous phase spiral acquisition obtained through the abdomen and pelvis. Multiplanar reconstructions were generated. Total dose length product 745.71 mGycm. CTDIvol(s) 12.77 mGy. Dose reduction achieved using automated exposure control Comparison: 01/23/2018 Findings: There is evidence of prior appendectomy. No evidence of diverticulosis or diverticulitis. No small bowel distention. Previously demonstrated mild proximal small bowel distention is no longer evident. Distal esophagus, stomach, duodenum are unremarkable. No free or loculated intraperitoneal air or fluid. The liver, gallbladder, bile ducts, pancreas, spleen, adrenals, kidneys are unremarkable. No retroperitoneal or mesenteric mass or adenopathy. No pelvic mass or adenopathy. The included lung bases are clear. The bones are unremarkable Impression: No acute or significant abnormality This agrees with the preliminary interpretation provided overnight by Dr. Hancock The CT scanner at [facility] is accredited by the [employer] and the scans are performed using protocols designed to limit radiation exposure to as low as reasonably achievable to attain images of sufficient resolution adequate for diagnostic evaluation.
--- NOTE | 2018-07-31 22:01 | Cardiology Report ---
APPROVED REPORT EKG Measurement Heart [id number] Sinus rhythm with marked sinus arrhythmia Early repolarization Otherwise normal ECG
== END 2018-07-29 21:29 | disposition home or self-care (01) ==
LOC: EMR 16:41
DX: R10.9 Unspecified abdominal pain (principal); D72.829 Elevated white blood cell count, unspecified
CPT/HCPCS: 36415; 74177; 80053; 83690; 85007; 85025; 93005; 96361; 96374; 96375; 96376; 99284; J1170; J2270; J2405; Q9967

== ENCOUNTER 2018-07-31 10:11 | Emergency (ER) | payer BC ==
[~2018-07-31] VITALS: Ht 175.3 cm; Wt 72.6 kg
[~2018-07-31 10:11] MED LIST changes: +NORCO 5-325 TA1 EACH ORAL; +ZOFRAN4 M1 ORAL
[2018-07-31] MEDS ORDERED: Capsaicin 0.075% Cream TOPIC ONE (10:45)
[2018-07-31] MEDS ORDERED: Morphine Sulfate 4mg/ml Inj (IV USE ONLY) IVP ONE ×2 (10:45→14:15)
--- NOTE | 2018-07-31 10:50 | NUR ---
ED Nurse Note: Patient presents to ER due to abdominal pain, N/V (bile) x 2 days; Guarding noted. Provided emesis bag. Reports no use of drug or alcohol. Patient denies fever or diarrhea. Provided comfort measures.
--- NOTE | 2018-07-31 11:18 | NUR ---
ED Nurse Note: Report given to EVELIA Caldwell.
--- NOTE | 2018-07-31 11:20 | NUR ---
ED Nurse Note: Dr. Hurtado notified that patient refused Capsacin cream. Patient states 'It only beavers, it doesn't work'. Returned the cream to the pharmacy.
[2018-07-31 11:29] LABS: HEMATOCRIT 44.6 % (42.0-52.0); HEMOGLOBIN 15.1 G/DL (14.2-18.0); MEAN CORPUSCULAR VOLUME 88 FL (80-99); PLATELET COUNT 280 K/UL (150-450); RED BLOOD COUNT 5.06 M/UL (4.70-6.10); RED CELL DISTRIBUTION WIDTH 11.2 % (11.6-14.8); WHITE BLOOD COUNT 19.7 K/UL (4.8-10.8)
[2018-07-31 11:33] VITALS: BP 140/86
[2018-07-31 11:38] LABS: ANION GAP 12 mmol/L (5-15); BLOOD UREA NITROGEN 8 mg/dL (7-18); CALCIUM 9.3 MG/DL (8.5-10.1); CARBON DIOXIDE 24 MMOL/L (21-32); CHLORIDE 102 MMOL/L (98-107); CREATININE 0.9 MG/DL (0.55-1.30); POTASSIUM 3.4 MMOL/L (3.5-5.1); SODIUM 138 MMOL/L (136-145)
[2018-07-31 11:43] LABS: ALANINE AMINOTRANSFERASE 35 U/L (12-78); ALBUMIN 4.1 G/DL (3.4-5.0); ALBUMIN/GLOBULIN RATIO 1.1 (1.0-2.7); ALKALINE PHOSPHATASE 65 U/L (46-116); ASPARTATE AMINO TRANSFERASE 30 U/L (15-37); BILIRUBIN,TOTAL 0.4 MG/DL (0.2-1.0)
--- NOTE | 2018-07-31 11:45 | NUR ---
ED Nurse Note: urine sent to lab.
[2018-07-31 11:54] LABS: APPEARANCE,URINE CLEAR; BILIRUBIN, URINE 1+ (NEGATIVE); COLOR,URINE AMBER; GLUCOSE, URINE (UA) NEGATIVE (NEGATIVE); KETONES,URINE NEGATIVE (NEGATIVE); LEUKOCYTE ESTERASE ,URINE 1+ (NEGATIVE); NITRITE,URINE NEGATIVE (NEGATIVE); PH,URINE 6.5 (4.5-8.0); PROTEIN,URINE 1+ (NEGATIVE); UROBILINOGEN,URINE 4 MG/DL (0.0-1.0)
--- NOTE | 2018-07-31 12:00 | NUR ---
ED Nurse Note: pt reports he has pain in his abd, req pain medication (morphine), ERMD notified.
[2018-07-31] MEDS ORDERED: cefTRIAXone 1 GM in NS 55 ML IVPB ONE (12:30)
[2018-07-31] MEDS ORDERED: Haloperidol Lactate 5 MG in D5W 55 ML IVPB ONE (12:30)
--- NOTE | 2018-07-31 12:30 | NUR ---
ED Nurse Note: pt refused haldol, pt states it gives him anxiety attack, ERMD notified.
[2018-07-31] MEDS ORDERED: ZyPREXA Zydis 10mg tab ORAL ONE (12:45)
[2018-07-31 13:33] VITALS: BP 121/87
[2018-07-31] MEDS ORDERED: CARAFATE1 G1 ORAL (14:21)
[2018-07-31] MEDS ORDERED: PROTONIX40 MG ORAL (14:21)
[2018-07-31] MEDS ORDERED: CEPHALEXIN500 MG ORAL (14:29)
--- NOTE | 2018-07-31 15:32 | NUR ---
ED Nurse Note: pt cleared to be d/c per ERMD, iv d/c and dressing applied, pt states he doesn't want to be admitted and want to go home, pt discharge and aftercare instruction provided w/ prescription, pt education done via discussion and handout, pt advised to follow up with pcp or return to ed if changes in condition, pt verbalized understanding and agrees with plan, vss, ambulatory w/ steady gait, left w/ all belongings, pt accompanied by girlfriend.
[2018-07-31 15:33] VITALS: BP 132/87
--- NOTE | 2018-07-31 16:02 | Emergency Room Report ---
History of Present Illness General Chief Complaint: Abdominal Pain Source: Patient Present Illness HPI Patient is a 22-year-old male who presented after increased abdominal discomfort. Patient had had previous appendectomy. He was noted to have multiple episodes of similar symptoms in the past. He reports having increased diffuse abdominal pain. Patient was noted to have multiple episodes of vomiting which did not have any blood. He reports having increased abdominal pain since prior visit. He had recently been started on pain medications and given prescriptions for acid blockers. Patient presented after having persistent pain. Patient had multiple prior CT imaging studies performed and was noted to have chronic elevation of his white blood count. Allergies: Coded Allergies: No Known Allergies (Unverified , 07/29/18) Patient History Past Medical History: see triage record, old chart reviewed Reviewed Nursing Documentation: PMH: Agreed; PSxH: Agreed Nursing Documentation-PMH Past Medical History: No History, Except For Review of Systems All Other Systems: negative except mentioned in HPI Physical Exam Vital Signs Date Time Temp Pulse Resp B/P (MAP) Pulse Ox O2 Delivery O2 Flow Rate FiO2 07/31/18 10:22 98.6 74 20 140/86 98 Room Air Sp02 EP Interpretation: reviewed, normal General Appearance: normal inspection, no apparent distress, alert, GCS 15, mild distress Head: atraumatic ENT: normal ENT inspection, hearing grossly normal, normal voice Neck: normal inspection, full range of motion, supple, no bony tend Respiratory: normal inspection, lungs clear, normal breath sounds, no respiratory distress, no retraction, no wheezing Cardiovascular #1: regular rate, rhythm, no edema Gastrointestinal: soft, no guarding, no hernia, distended Genitourinary: no CVA tenderness Musculoskeletal: normal inspection, back normal, normal range of motion Neurologic: normal inspection, alert, oriented x3, responsive, 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 Differential diagnoses included ischemic bowel, appendicitis, perforated viscus, abdominal aortic aneurysm, inferior myocardial infarction, viral gastroenteritis among others. Because of complexity of patient's case laboratory were ordered.Prior CT imaging showed prior appendectomy without evident acute abdominal pathology. Labs or studies were repeated and showed no evidence of acute change. Urinalysis showed some evidence of mild urinary tract infection patient was started on oral Keflex. He is given IV fluids. Patient was noted to have improvement. Patient was offered admission due to continued abdominal pain which he declined. Patient was advised to return if he changes mind or had any worsening of condition. Labs Test 07/31/18 10:50 07/31/18 11:42 White Blood Count 19.7 K/UL (4.8-10.8) Red Blood Count 5.06 M/UL (4.70-6.10) Hemoglobin 15.1 G/DL (14.2-18.0) Hematocrit 44.6 % (42.0-52.0) Mean Corpuscular Volume 88 FL (80-99) Mean Corpuscular Hemoglobin 29.9 PG (27.0-31.0) Mean Corpuscular Hemoglobin Concent 33.9 G/DL (32.0-36.0) Red Cell Distribution Width 11.2 % (11.6-14.8) Platelet Count 280 K/UL (150-450) Mean Platelet Volume 7.5 FL (6.5-10.1) Neutrophils (%) (Auto) % (45.0-75.0) Lymphocytes (%) (Auto) % (20.0-45.0) Monocytes (%) (Auto) % (1.0-10.0) Eosinophils (%) (Auto) % (0.0-3.0) Basophils (%) (Auto) % (0.0-2.0) Differential Total Cells Counted 100 Neutrophils % (Manual) 75 % (45-75) Lymphocytes % (Manual) 19 % (20-45) Monocytes % (Manual) 5 % (1-10) Eosinophils % (Manual) 1 % (0-3) Basophils % (Manual) 0 % (0-2) Band Neutrophils 0 % (0-8) Platelet Estimate Adequate Platelet Morphology Normal Red Blood Cell Morphology Normal Sodium Level 138 MMOL/L (136-145) Potassium Level 3.4 MMOL/L (3.5-5.1) Chloride Level 102 MMOL/L (98-107) Carbon Dioxide Level 24 MMOL/L (21-32) Anion Gap 12 mmol/L (5-15) Blood Urea Nitrogen 8 mg/dL (7-18) Creatinine 0.9 MG/DL (0.55-1.30) Estimat Glomerular Filtration Rate > 60 mL/min (>60) Glucose Level 113 MG/DL (74-106) Calcium Level 9.3 MG/DL (8.5-10.1) Total Bilirubin 0.4 MG/DL (0.2-1.0) Aspartate Amino Transf (AST/SGOT) 30 U/L (15-37) Alanine Aminotransferase (ALT/SGPT) 35 U/L (12-78) Alkaline Phosphatase 65 U/L (46-116) Total Protein 7.9 G/DL (6.4-8.2) Albumin 4.1 G/DL (3.4-5.0) Globulin 3.8 g/dL Albumin/Globulin Ratio 1.1 (1.0-2.7) Lipase 112 U/L (73-393) Urine Color Shanelle Urine Appearance Clear Urine pH 6.5 (4.5-8.0) Urine Specific [place] 1.020 (1.005-1.035) Urine Protein 1+ (NEGATIVE) Urine Glucose (UA) Negative (NEGATIVE) Urine Ketones Negative (NEGATIVE) Urine Blood 5+ (NEGATIVE) Urine Nitrite Negative (NEGATIVE) Urine Bilirubin 1+ (NEGATIVE) Urine Ictotest Negative (NEGATIVE) Urine Urobilinogen 4 MG/DL (0.0-1.0) Urine Leukocyte Esterase 1+ (NEGATIVE) Urine RBC 5-10 /HPF (0 - 0) Urine WBC 5-10 /HPF (0 - 0) Urine Squamous Epithelial Cells Occasional /LPF Urine Bacteria Few /HPF (NONE) Urine Mucus Moderate /LPF (NONE/OCC) Urine Opiates Screen Negative (NEGATIVE) Urine Barbiturates Screen Negative (NEGATIVE) Phencyclidine (PCP) Screen Negative (NEGATIVE) Urine Amphetamines Screen Negative (NEGATIVE) Urine Benzodiazepines Screen Negative (NEGATIVE) Urine Cocaine Screen Negative (NEGATIVE) Urine Marijuana (THC) Screen Negative (NEGATIVE) Last Vital Signs Date Time Temp Pulse Resp B/P (MAP) Pulse Ox O2 Delivery O2 Flow Rate FiO2 07/31/18 15:33 98.1 79 18 132/87 100 Room Air Status: improved Disposition: HOME, SELF-CARE Scripts Cephalexin* (KEFLEX*) 500 Mg Capsule 500 MG ORAL EVERY 6 HOURS, #28 CAP Prov: Collins Hurtado MD 07/31/18 Sucralfate* (CARAFATE*) 1 Gm Tablet 1 GM ORAL FOUR TIMES A DAY, #20 TAB Prov: Collins Hurtado MD 07/31/18 Pantoprazole* (PROTONIX*) 40 Mg Tablet.dr 40 MG ORAL DAILY, #30 TAB Prov: Collins Hurtado MD 07/31/18 Patient Instructions: Abdominal Pain, Adult Collins Hurtado MD Jul 31, 2018 16:02
== END 2018-07-31 15:30 | disposition home or self-care (01) ==
LOC: EMR 10:53
DX: R10.9 Unspecified abdominal pain (principal)
CPT/HCPCS: 36415; 80053; 80307; 81003; 83690; 85007; 85025; 96361; 96365; 96375; 96376; 99284; J0696; J2270; J2405